=== PATIENT | female | born 1950 | race Caucasian/White ===

== ENCOUNTER 2021-07-15 16:42 | Emergency (ER) | payer MEDICARE, MEDICAID ==
[~2021-07-15] VITALS: Ht 152.4 cm; Wt 75.7 kg
--- NOTE | 2021-07-15 16:57 | NUR ---
PT WAS CALLED, NO ANSWER IN LOBBY OR OUTSIDE AT THIS TIME
--- NOTE | 2021-07-15 17:12 | NUR ---
PT AMBULATED TO ER BED 4
[2021-07-15 17:15] VITALS: BP 152/91
--- NOTE | 2021-07-15 17:15 | NUR ---
71 y/o Female BIB for c/o diarrhea x 1 week. Was seen by PCP yesterday for same symptoms, did not have relief from 1 day of ATB/anti-diarrheals. Abd is soft and non-tender. Passing flatus at this time. Denies N/V/D/CP at this time. pmhx: HTN NKA Home meds denies
--- NOTE | 2021-07-15 18:23 | NUR ---
IV STARTED 20G L AC, LABS DRAWN AT THIS TIME AND GIVEN TO PHLEB
[2021-07-15 18:28] LABS: BASOPHILS # (AUTO) 0.1 K/uL (0.00-0.22); BASOPHILS % (AUTO) 0.8 % (0.0-2.0); EOSINOPHILS # (AUTO) 0.2 K/uL (0-0.4); EOSINOPHILS % (AUTO) 1.8 % (0.0-4.0); HEMATOCRIT 43.6 % (36-48); HEMOGLOBIN 14.7 g/dL (12.0-16.0); LYMPHOCYTES # (AUTO) 2.7 K/uL (2.5-16.5); LYMPHOCYTES % (AUTO) 25.3 % (20.5-51.1); MEAN CORPUSCULAR HEMOGLOBIN 31 pg (27-31); MEAN CORPUSCULAR HGB CONC 34 g/dL (33-37); MEAN CORPUSCULAR VOLUME 91.7 fL (80-94); MONOCYTES # (AUTO) 0.7 K/uL (0.8-1.0); MONOCYTES % (AUTO) 6.9 % (1.7-9.3); NEUTROPHILS % (AUTO) 65.2 % (42.2-75.2); PLATELET COUNT (AUTO) 342 K/uL (140-450); RED BLOOD CELL COUNT(AUTO) 4.75 MIL/uL (4.20-5.40); RED CELL DISTRIBUTION WIDTH 14.5 % (11.6-13.7); WHITE BLOOD COUNT (AUTO) 10.7 K/uL (4.8-10.8)
[2021-07-15 18:35] LABS: APPEARANCE,URINE CLEAR (CLEAR); BILIRUBIN,URINE NEGATIVE (NEGATIVE); BLOOD, URINE NEGATIVE (NEGATIVE); COLOR,URINE YELLOW (YELLOW); LEUKOCYTE ESTERASE ,URINE NEGATIVE (NEGATIVE); NITRITE, URINE NEGATIVE (NEGATIVE); UGLUCOSE NEGATIVE (NEGATIVE)
[2021-07-15 18:47] LABS: ALBUMIN 3.4 g/dL (3.4-5.0); ANION GAP 12.4 (8-16); CARBON DIOXIDE 29.8 mmol/L (21-32); CREATININE 1.1 mg/dL (0.6-1.3); POTASSIUM 4.2 mmol/L (3.5-5.1); TOTAL BILIRUBIN 0.4 mg/dL (0.0-1.0)
--- NOTE | 2021-07-15 18:47 | NUR ---
EKG DONE AT BEDSIDE
--- NOTE | 2021-07-15 19:10 | NUR ---
JAIRO HAS SEEN CT RESULTS AND IS AWARE.
--- NOTE | 2021-07-15 19:16 | NUR ---
Pt report given to ANAYELI LEONARD. Transfer of care at this time.
--- NOTE | 2021-07-15 21:07 | NUR ---
PT TAKEN TO CT VIA RJULIANO.
--- NOTE | 2021-07-16 01:08 | NUR ---
PATIENT CLEARED FOR DISCHARGE AT THIS TIME. NO FURTHER QUESTIONS AT THIS TIME, FAMILY AT BEDSIDE. ADVISED TO FOLLOW UP WITH PCP AND VASCULAR SURGEON. NO TOHER COMPLAINTS REGARDING TEACHING.
[2021-07-16 01:14] VITALS: BP 137/85
--- NOTE | 2021-07-16 01:15 | NUR ---
Chart checked and completed. The patient's care was reviewed and supervised by [facility] ED, RN.
== END 2021-07-16 01:08 | disposition home or self-care (01) ==
LOC: MED 16:42
DX: R10.31 Right lower quadrant pain (principal); I77.1 Stricture of artery; R11.2 Nausea with vomiting, unspecified; R19.7 Diarrhea, unspecified; I10 Essential (primary) hypertension
CPT/HCPCS: 36415; 71275; 74174; 74176; 80053; 81003; 83690; 84484; 85025; 93005; 99285; Q9967